=== PATIENT | female | born 1935 | race Caucasian/White ===

== ENCOUNTER → 2017-12-14 | Outpatient (CLI) | payer OTHER ==
[~2017-12-14] MED LIST: ASPI1TAB57 PO; ASPI81TA82 PO; CITRTAB7 PO; CLOB-40 TOPICAL; COQ-100C5 PO; CYAN1TAB24 PO; FEXO180 OR; FISHCAP4 PO; FLUT50SP EACH NARE; IPRASOL INH; LEVO250T7 PO; MELO15TA20 PO; MONT10TA4 PO; NITR50CA27 PO; OMEP20TA93 PO; OMPR20CCR PO; PROBCAP28 PO; REST0.05 EACH EYE; REST0.05 OU; VENTAER INH; VITA100052 PO; VITACAP7 PO; VITATAB11; ZAFI1TAB2 PO
== END ==
LOC: CPRE 11:28
PROVIDERS: ATTEND Orthopaedic Surgery Orthopaedic Trauma
DX: Z01.818 Encounter for other preprocedural examination (principal)

== ENCOUNTER 2017-12-18 05:17 | Inpatient (IN) | payer OTHER, MEDICARE ==
[~2017-12-18] VITALS: Ht 149.9 cm; Wt 58.9 kg
[~2017-12-18 05:17] MED LIST changes: -ASPI81TA82 PO; -FEXO180 OR; -NITR50CA27 PO; -OMPR20CCR PO; -PROBCAP28 PO; -REST0.05 OU; -VITATAB11; -ZAFI1TAB2 PO
[2017-12-18] MEDS ORDERED: DEXAMETHASONE SOD PHOS 20 MG/5 ML VIAL IV PUSH ONE (05:45)
[2017-12-18] MEDS ORDERED: CHLORHEXIDINE GLUCONATE 2 % 1 PACK (2 CLOTHS) TOPICAL PRN (05:45)
[2017-12-18] MEDS ORDERED: CHLORHEXIDINE GLUCONATE 4% SOLN 120 ML BTL TOPICAL SCH (05:45)
[2017-12-18] MEDS ORDERED: LACTATED RINGER'S 1000 ML IV PRN (05:45)
[2017-12-18] MEDS ORDERED: ONDANSETRON HCL 4 MG/2 ML VIAL IV PUSH ONE (05:45)
[2017-12-18] MEDS ORDERED: METOPROLOL TARTRATE 25 MG TAB PO PRN (05:45)
[2017-12-18] MEDS ORDERED: SODIUM CHLORID 0.9% 500 ML IV PRN (05:45)
[2017-12-18] MEDS ORDERED: POVIDONE IODINE 5% (ANTISEPSIS KIT) 4 APPLICATIONS EACH NARE PRN (05:45)
[2017-12-18] MEDS ORDERED: FAMOTIDINE 20 MG/2 ML VIAL IV PUSH ONE (05:45)
[2017-12-18] MEDS ORDERED: ACETAMINOPHEN 1000 MG/100 ML 100 ML IV ONE (05:45)
[2017-12-18 05:48] LABS: BACTERIA, URINE RARE /hpf; BILIRUBIN, URINE NEG (NEG); BLOOD, URINE NEG (NEG); GLUCOSE,URINE NEG (NEG); KETONE, URINE NEG (NEG); MUCUS URINE FEW /lpf (OCC); NITRITE,URINE NEG (NEG); PH, URINE 5.5 (5.0-8.5); SQUAMOUS EPITHELIAL CELL URINE 3 /hpf (0-5); URINE COLOR LIGHT-YELLOW (YELLW/STRAW); URINE LEUKOCYTE ESTERASE TRACE (NEG)
[2017-12-18] MEDS ORDERED: ONDANSETRON ODT 4 MG TAB ONE (06:29)
--- NOTE | 2017-12-18 06:37 | HHI.FF ---
Face to Face Verification Diagnosis: (1) S/P total hip arthroplasty Physical Therapy Gait training Hip: Total hip, Protocol: Right, Progress to weight bearing Right LE Weight Bearing: WB as tolerated Nursing Dressing Changes: Daily dressing change (beginning on POD 7 with primapore. maintain surgical dressing x 6 days unless saturated with blood) I have seen patient Teena Cassidy on 12/18/17. My clinical findings support the need for the requested home health care services because: Ltd mobility - disease progression I certify that my clinical findings support that this patient is homebound because: Post-op weakness Keagan Ratliff/Auto Detailer PA Dec 18, 2017 06:37
[2017-12-18] MEDS ORDERED: VANCOMYCIN 1 GM/200 ML PREMIX ON-CALL IV SCH (06:45)
[2017-12-18] MEDS ORDERED: GENTAMICIN SULFATE 80 MG/2 ML VIAL ONE (06:57)
[2017-12-18] MEDS ORDERED: RESP: ALBUTEROL CONC 2.5 MG/0.5 ML NEB ONE (07:03)
[2017-12-18] MEDS ORDERED: TRANEXAMIC ACID IV SCH (07:30)
[2017-12-18] MEDS ORDERED: BUPIVACAINE-EPI PF 0.25% INJ 20 ML, BUPIVACAINE LIPOSO PF 1.3% INJ 20 ML in SODIUM CHLO... P-ARTICULR SCH (07:30)
[2017-12-18] MEDS ORDERED: SODIUM CHLORIDE 0.9% IV SCH (07:30)
[2017-12-18] MEDS ORDERED: ceFAZolin INJ 1,000 MG VIAL ONE (07:46)
[2017-12-18] MEDS ORDERED: diphenhydrAMINE HCL 50 MG/ML VIAL ONE (07:49)
[2017-12-18] MEDS ORDERED: VANCOMYCIN HCL 1000 MG VIAL ONE (08:33)
[2017-12-18] MEDS: LACTATED RINGER'S 1000 ML INJ 1,000 ML IV SCH ×2 (09:10→21:40)
[2017-12-18] MEDS ORDERED: Post-op Orders (for Pharmacy) XX ONE (09:15)
[2017-12-18] MEDS ORDERED: ACETAMINOPHEN/HYDROcodone 325 MG/10 MG TAB PO PRN (09:15)
[2017-12-18] MEDS ORDERED: ALBUTEROL SULFATE 90 MCG/ACT HFA 8 GM INHALER INH PRN (09:15)
[2017-12-18] MEDS ORDERED: NALOXONE HCL 0.4 MG/ML AMP IV PUSH PRN (09:15)
[2017-12-18] MEDS ORDERED: ACETAMINOPHEN/HYDROcodone 325 MG/7.5 MG TAB PO PRN (09:15)
--- NOTE | 2017-12-18 09:21 | PD.OP ---
cc: Caleb Alvarez MD Operative Report Date of Surgery: Dec 18, 2017 Preoperative Diagnosis: Severe osteoarthritis right hip Postoperative Diagnosis: Procedure: Right total hip arthroplasty by anterior approach Anesthesia: General Surgeon: Caleb Alvarez Phlebotomy Services Representative(s): Keagan Ratliff PA-C The surgical procedure was assisted by my physician information assistant. My P.A. presence was necessary throughout this case for the manipulation and positioning of the surgical extremity. My P.A. was assisting me throughout the duration of this procedure. The skill set of a physician information assistant was medically necessary to complete this procedure. During the surgical case the surgical appliances salesperson was working at the back table and the physician information assistant was directly assisting me. Operation and Findings: PLAN OF ACTIVITY Weight bear as tolerated. IMPLANTS USED DePuy Corail size 12 collared stem with a size [50] [place] Gription cup, [50/ 32] Altrx poly liner, and a [32 +5] metal head. DETAILS OF PROCEDURE: This patient has a long history of hip pain. Patient was found to have severe osteoarthritis. The patient had radiographic evidence of joint space narrowing with [id number] arthritis and osteophytes around the acetabulum as well as the femoral head. There was also some cystic changes. The patient failed conservative treatment with pain medications, anti-inflammatories, physical therapy, assistive devices including a cane, as well as therapeutic injection of the hip. Patient's hip arthritis was limiting his ability to ambulate and perform activities of daily living. The patient wished to proceed with surgery and informed consent was obtained. Operative site was marked. I discussed both posterior approach and anterior approach with the patient and decision was made for anterior approach. Patient was brought to OR and placed on OR table. IV sedation and general anesthesia was administered by anesthesiologist. Patient positioned on a Rachelle table and was given IV antibiotics. Time-out procedure was performed. The hip and thigh were prepped with alcohol followed by Hibiclens. The thigh was draped in the usual sterile fashion. Clean Air Suite was used for this procedure. The procedure began with a 5-inch incision over the anterolateral thigh. Subcutaneous tissue was dissected with Bovie. The fascia over the tensa fasciae latae was incised. Care was taken to avoid injury to the lateral femoral cutaneous nerve. The tensor muscle was retracted laterally. Sartorius was retracted medially. Retractors were now placed. The reflected head of the rectus is now elevated. A capsulotomy was performed over the anterior head capsule. Sutures were placed to help retract the capsule. At this point the femoral head and neck were identified. With soft tissue protected, oscillating saw was used to make a cut through the femoral neck, the femoral head was now removed. At this point attention was turned to preparation of the acetabulum. The labrum was excised. The acetabulum was sequentially reamed up to size [50]. A [place] cup was now placed. Fluoroscopy was used to aid in identification of appropriate version. Cup was fully impacted and found to have excellent fit. Hole eliminator was now placed. The liner was now impacted into the cup. At this point the hip was externally rotated. A hook was placed around the proximal femur. The capsule was released off the lateral and medial femur. The hip was now extended and adducted. Retractors were placed around the proximal femur to allow for exposure. A box osteotome was used to remove the lateral cortex of the femoral neck. A broach was used to help lateralize the prosthesis. Canal finder was used to create a path down the canal. Next, the canal was sequentially broached up to size [12]. This was found to be an excellent fit. Calcar planer was placed. A standard head was placed, and the hip was reduced. The hip was found to have excellent stability with good range of motion. The leg lengths were measured under fluoroscopy and found to be equal compared to preoperatively. Trial broach was removed. The Corail stem was opened. Stem was fully impacted into the proximal femur in appropriate version. The femoral head was placed. The hip was again reduced. Fluoroscopy confirmed excellent alignment of prosthesis. The wound was thoroughly irrigated and capsule was closed with #1 Vicryl. The fascia over the tensor fasciae muscle was closed with #1 Vicryl, subcutaneous tissue was closed with 3-0 Vicryl and the skin was closed with haris and Dermabond skin closure. The capsule layers, muscle, and subcutaneous tissue were injected with a mixture of saline and bupivicaine. Dressings were applied. The patient was transferred to Recovery Room in stable condition. Caleb Alvarez MD Dec 18, 2017 09:21
[2017-12-18] MEDS ORDERED: HYDROmorphone HCL PF 2 MG/ML VIAL ONE (09:40)
[2017-12-18] MEDS ORDERED: ONDANSETRON ODT 4 MG TAB PO PRN (10:00)
--- NOTE | 2017-12-18 10:36 | RADRPT ---
EXAM DATE: 12/18/2017 10:32 AM EDT AGE/SEX: 82 years / Female INDICATIONS: Post op right hip CLINICAL DATA: This is the patient's initial encounter. Patient reports that signs and symptoms have been present for 1 day and indicates a pain score of 10/10. MEDICAL/SURGICAL HISTORY: Non-responsive. . right hip COMPARISON: No prior exams available for comparison. FINDINGS: The patient is post right hip arthroplasty. Orthopedic hardware is in excellent position. The alignme nt is good. There are moderate degenerative changes within the left hip. The osseous structures of the pelvis are otherwise intact. CONCLUSION: Patient is post right hip arthroplasty. The orthopedic hardware is in excellent position. Electronically signed by: Golden Cobb MD 12/18/2017 10:35 AM EDT
[2017-12-18] MEDS ORDERED: KETOROLAC TROMETHAMINE 30 MG/ML (IVP) VIAL IV PUSH SCH (11:00)
[2017-12-18] MEDS: ASPIRIN 81 MG CHEW TAB CHEW SCH ×2 (11:00→21:17)
[2017-12-18] MEDS: ACETAMINOPHEN 1000 MG/100 ML 100 ML IV SCH (11:00)
[2017-12-18] MEDS ORDERED: ERYTHROMYCIN 0.5% OPTH OINT 1 GM TUBO ONE (11:05)
[2017-12-18] MEDS ORDERED: DO NOT ADM ANY ANTICOAGULANT DRUGS PRN (11:40)
[2017-12-18] MEDS ORDERED: NEOSTIGMINE 5 MG/5 ML SYRINGE IV PUSH ONE (12:00)
[2017-12-18] MEDS ORDERED: PROPOFOL 200 MG/20 ML AMP IV ONE (12:00)
[2017-12-18] MEDS ORDERED: TRANEXAMIC ACID INJ 1,000 MG in SODIUM CHLORIDE 0.9% INJ 100 ML IV ONE (12:00)
[2017-12-18] MEDS ORDERED: GLYCOPYRROLATE 1 MG/5 ML SYRINGE IV PUSH ONE (12:00)
[2017-12-18] MEDS ORDERED: PHENYLEPH/NS 1000 MCG/10 ML SYR IV ONE (12:00)
[2017-12-18] MEDS ORDERED: ePHEDrine/NS 25 MG/5 ML SYRINGE IV ONE (12:00)
[2017-12-18] MEDS ORDERED: ROCURONIUM INJ 50 MG/5 ML SYRINGE IV PUSH ONE (12:00)
[2017-12-18] MEDS ORDERED: STERILE WATER FOR INJECTION 20 ML VIAL IV ONE (12:00)
[2017-12-18] MEDS ORDERED: LIDOCAINE HCL 1% PF 5 ML SYRINGE OTHER ONE (12:00)
[2017-12-18 12:30] VITALS: BP 131/56; PULSE 71; RESP 17; TEMP 98.6; O2SAT 95
[2017-12-18] MEDS ORDERED: ERYTHROMYCIN 0.5% OPTH OINT 1 GM TUBO RIGHT EYE ONE (12:30)
[2017-12-18] MEDS ORDERED: DIATRIZOATE MEGLUM/DIATRIZOATE SOD 9 ML CUP PO ONE (12:30)
[2017-12-18 13:12] VITALS: O2SAT 93
--- NOTE | 2017-12-18 13:14 | RADRPT ---
EXAM DATE: 12/18/2017 12:58 PM EDT AGE/SEX: 82 years / Female INDICATIONS: Right total hip replacement. CLINICAL DATA: This is the patient's initial encounter. Patient reports that signs and symptoms have been present for 1 day and indicates a pain score of Nonresponsive. MEDICAL/SURGICAL HISTORY: Non-responsive. Non-responsive. COMPARISON: No prior exams available for comparison. FINDINGS: Post surgical changes following right hip replacement are noted. Acetabular and femoral components ar e well seated and in satisfactory alignment. Osseous structures are otherwise intact. CONCLUSION: Satisfactory postoperative appearance of the right hip following replacement. Electronically signed by: Raffaele Morse MD 12/18/2017 1:13 PM EDT
[2017-12-18] MEDS: ceFAZolin 2 GM PREMIX 50 ML IV SCH ×2 (15:36→21:18)
[2017-12-18 16:23] VITALS: BP 121/58; PULSE 64; RESP 18; TEMP 97.4; O2SAT 94
[2017-12-18] MEDS: RESP: ALBUTEROL 2.5 MG/IPRATROPIUM 0.5 MG NEB (SCH) INH (19:42)
[2017-12-18 19:46] VITALS: O2SAT 97
[2017-12-18 20:00] VITALS: BP 110/55; PULSE 62; RESP 18; TEMP 97.8; O2SAT 96
[2017-12-18] MEDS ORDERED: PATIENT OWN MEDICATION (Cyclosporine Opth (Restasis Opth) 1 DROP) EACH EYE SCH (21:00)
[2017-12-18] MEDS ORDERED: MONTELUKAST SODIUM 10 MG TAB PO SCH (21:00)
[2017-12-18] MEDS: CELECOXIB 200 MG CAP PO SCH (21:17)
[2017-12-18] MEDS: VANCOMYCIN INJ 1,000 MG in SODIUM CHLOR 0.9% 250 ML INJ 250 ML IV SCH (21:18)
[2017-12-19] VITALS: BP 91/52; PULSE 60; RESP 20; TEMP 98.4; O2SAT 95
[2017-12-19] MEDS: ACETAMINOPHEN 1000 MG/100 ML 100 ML IV SCH ×2 (00:37→11:00)
[2017-12-19 04:00] VITALS: BP 94/53; PULSE 67; RESP 16; TEMP 97.6; O2SAT 96
[2017-12-19 05:57] LABS: HEMATOCRIT 30.4 % (35.0-46.0); HEMOGLOBIN 10.1 GM/DL (11.6-15.3)
--- NOTE | 2017-12-19 06:43 | PD.ORT.PN ---
Subjective Subjective Remarks POD 1 s/p Right IRISH anterior approach doing well. out of bed multiple times to bathroom. states pain controlled and no complaints Objective Vitals Vital Signs Date Time Temp Pulse Resp B/P (MAP) Pulse Ox O2 Delivery O2 Flow Rate FiO2 12/19/17 04:00 97.6 67 16 94/53 (67) 96 12/19/17 00:00 98.4 60 20 91/52 (65) 95 12/18/17 20:00 97.8 62 18 110/55 (73) 96 12/18/17 19:46 97 Nasal Cannula 2.00 12/18/17 16:23 97.4 64 18 121/58 (79) 94 12/18/17 13:12 93 Nasal Cannula 2.00 12/18/17 12:30 98.6 71 17 131/56 (81) 95 12/18/17 11:47 98.0 65 16 128/66 (86) 99 Nasal Cannula 3 12/18/17 11:30 80 16 153/60 (91) 99 Nasal Cannula 3 12/18/17 11:00 67 16 153/60 (91) 99 Nasal Cannula 3 12/18/17 10:30 63 16 123/60 (81) 97 Nasal Cannula 3 12/18/17 10:15 66 16 118/58 (78) 97 Nasal Cannula 3 12/18/17 10:00 65 17 119/58 (78) 97 Nasal Cannula 3 12/18/17 09:45 78 15 149/66 (93) 96 Nasal Cannula 3 12/18/17 09:37 97.7 78 15 135/63 (87) 96 Nasal Cannula 3 I/O 12/18/17 12/18/17 12/18/17 12/19/17 12/19/17 12/19/17 07:00 15:00 23:00 07:00 15:00 23:00 Intake Total 1175 ml 670 ml 480 ml Output Total 800 ml Balance 375 ml 670 ml 480 ml Intake Oral 670 ml 480 ml IV Total 175 ml Other 1000 ml Output Urine Total 300 ml Estimated Blood Loss 500 ml # Voids 7 8 # Bowel Movements 0 0 Result Diagram: 12/19/17 0505 Imaging Last 24 hours Impressions Hip and Pelvis X-Ray 12/18/17 0910 Signed Impressions: CONCLUSION: Patient is post right hip arthroplasty. The orthopedic hardware is in excellent position. Objective Remarks RLE: dressing clean and dry. intact. nvi Assessment & Plan Assessment and Plan 1) Right Anterior IRISH - POD 1 -WBAT -maintain dressing changes x 6 days -begin dailyi dressing changes in primapore dressings on POD 7 -DC home with HHC today -f/u with Helga or PA in 2 weeks Keagan Ratliff/First Sarahi KHAN Dec 19, 2017 06:43
--- NOTE | 2017-12-19 07:05 | HHI.DS ---
Discharge Summary Admission Date Dec 18, 2017 at 05:17 Discharge Date: Dec 19, 2017 Admitting Diagnosis Right hip osteoarthritis Diagnosis: (1) S/P total hip arthroplasty Diagnosis: Principal ICD Codes: Z96.649 - Presence of unspecified artificial hip joint Procedures Right anterior total hip arthroplasty CBC/BMP: 12/19/17 0505 Significant Findings Laboratory Tests Test 12/18/17 05:35 12/19/17 05:05 Urine Leukocyte Esterase TRACE (NEG) Urine Bacteria RARE /hpf (NONE) Urine Mucus FEW /lpf (OCC) Hemoglobin 10.1 GM/DL (11.6-15.3) Hematocrit 30.4 % (35.0-46.0) PE at Discharge RLE: dressing clean and dry. intact. nvi Hospital Course Patient has a long-standing course of right hip osteoarthritis. She failed conservative treatments which included anti-inflammatories, activity modification, and steroid injections. The decision was made to move forward with an elective right total hip arthroplasty. She tolerated the procedure well. She was admitted to [facility]. She is out of bed on postop day 0 and ambulating with a walker. She states that she went to the bathroom multiple times. She states her pain is well controlled. By postop day 1, she is hemodynamically stable, pain controlled, ambulating with a walker and fit for discharge home with home health care. She will remain fully weightbearing on the right leg. She will progress with therapy. She will maintain the dressing on her right hip for 6 days and begin daily dressing changes with a Primapore on postop day 7. She will follow-up on an outpatient basis with Dr. Partida or his PA in 2 weeks Pt Condition on Discharge: Good Discharge Disposition: Disch w/ Home Health Serv Discharge Instructions Diet Instructions: As Tolerated, No Restrictions Activities You Can Perform: Weight Bearing as Nena Follow up Referrals: Orthopedics - 2 Weeks @ [facility] with Caleb Partida MD Changed Medications: Aspirin (Aspirin 81) 81 Mg Tabdr 81 MG PO BID for Blood Clot Prevention for 30 Days, #60 TAB 0 Refills (Changed from: DAILY) Continued Medications: Albuterol 18 GM Inh (Ventolin Hfa 18 GM Inh) 90 Mcg/Act Aer 2 PUFF INH Q4H PRN for SHORTNESS OF BREATH, #1 INHALER 0 Refills B-Complex Vitamins (B Complex) 1 Cap 1 CAP PO DAILY for Nutritional Supplement, #30 CAP 0 Refills Calcium Citrate-Vitamin D (Citracal + D3 Maximum) 315-250 Mg-Unit Tab 2 TAB PO BID for Calcium Supplement, #100 TAB 0 Refills Cholecalciferol (Vitamin D High Potency) 1,000 Unit Cap 1000 UNITS PO DAILY, #1 BOTTLE Clobetasol Propionate (Temovate) 0.05 % Cream..g. 1 APPLIC TOPICAL WEEKLY Coenzyme Q10 (Ubidecarenone) (Coq-10 Tr) 100 Mg Cap 1 CAP PO DAILY Cyanocobalamin (B12) 1,000 Mcg Tab 1 CAP PO DAILY Cyclosporine Opth (Restasis Opth) 0.05% Emul 1 DROP EACH EYE BID for Dry Eye, #1 BOX 0 Refills Fish Oil-Cholecalciferol (Fish Oil + D3) 1,200-1,000 Mg-Unit Cap 1 CAP PO DAILY for Nutritional Supplement, #30 CAP 0 Refills Fluticasone Nasal [place] (Fluticasone Nasal [place]) 50 Mcg/Act Naspr 50 MCG EACH NARE DAILY for Allergy Management, #1 BOTTLE 0 Refills 50 mcg/spray Ipratropium-Albuterol Neb (Duoneb) 0.5-2.5 Mg/3 Ml Neb 1 NEBULE INH BID for Breathing Treatment, #30 NEBULE 0 Refills Levofloxacin (Levofloxacin) 250 Mg Tablet 250 MG PO DAILY for Infection, TAB 0 Refills Meloxicam (Meloxicam) 15 Mg Tab 15 MG PO DAILY for Arthritis Pain, #30 TAB 0 Refills Montelukast (Montelukast) 10 Mg Tab 10 MG PO HS, #30 TAB 0 Refills Omeprazole (Omeprazole) 20 Mg Tab 20 MG PO DAILY, #30 TAB 0 Refills Keagan Ratliff/Director Quality Systems BILL Dec 19, 2017 07:05
[2017-12-19] MEDS ORDERED: ASPI1TAB57 PO (07:06)
[2017-12-19 08:21] VITALS: BP 105/55; PULSE 64; RESP 17; TEMP 98.3; O2SAT 96
[2017-12-19] MEDS: VANCOMYCIN INJ 1,000 MG in SODIUM CHLOR 0.9% 250 ML INJ 250 ML IV SCH (08:41)
[2017-12-19] MEDS: ACETAMINOPHEN/HYDROcodone 325 MG/5 MG TAB PO PRN ×2 (08:42→12:08)
[2017-12-19] MEDS: CELECOXIB 200 MG CAP PO SCH (08:43)
[2017-12-19] MEDS: ASPIRIN 81 MG CHEW TAB CHEW SCH (08:43)
[2017-12-19] MEDS: RESP: ALBUTEROL 2.5 MG/IPRATROPIUM 0.5 MG NEB (SCH) INH (08:52)
[2017-12-19 08:55] VITALS: O2SAT 96
[2017-12-19] MEDS ORDERED: PANTOPRAZOLE SOD 20 MG DELAYED RELEASE TAB PO SCH (09:00)
[2017-12-19] MEDS ORDERED: NON-FORMULARY DRUG (Coenzyme Q10 (Ubidecarenone) (Coq-10 Tr) 1 CAP) PO SCH (09:00)
[2017-12-19] MEDS ORDERED: CYANOCOBALAMIN 1,000 MCG TAB PO SCH (09:00)
[2017-12-19] MEDS ORDERED: FLUTICASONE PROPIONATE 50 MCG/ACT 16 GM NASAL SPRAY EACH NARE SCH (09:00)
[2017-12-19] MEDS ORDERED: CHOLECALCIFEROL (VIT D3) 1000 UNIT TAB PO SCH (09:00)
[2017-12-19] MEDS ORDERED: NON-FORMULARY DRUG (Fish Oil-Cholecalciferol (Fish Oil + D3) 1 CAP) PO SCH (09:00)
[2017-12-19 11:51] VITALS: BP 105/58; PULSE 63; RESP 18; TEMP 98.4; O2SAT 94
[2017-12-19 13:08] VITALS: RESP 20
[2017-12-19] MEDS ORDERED: DOCUSATE SODIUM 100 MG CAP PO SCH (21:00)
== END 2017-12-19 14:20 | disposition home health service (06) | DRG 470 ==
LOC: HSDI 05:17 → N06A 12:01
PROVIDERS: ADMIT Orthopaedic Surgery Orthopaedic Trauma; ATTEND Orthopaedic Surgery Orthopaedic Trauma
PROC: 0SR902Z Replacement of Right Hip Joint with Metal on Polyethylene Synthetic Substitute, Open Approach (ICD-10-PCS; principal; 2017-12-18 07:20)
DX: M16.11 Unilateral primary osteoarthritis, right hip (principal); J45.909 Unspecified asthma, uncomplicated; K21.9 Gastro-esophageal reflux disease without esophagitis; Z88.1 Allergy status to other antibiotic agents; Z90.710 Acquired absence of both cervix and uterus; Z79.82 Long term (current) use of aspirin; Z88.5 Allergy status to narcotic agent; Z88.8 Allergy status to other drugs, medicaments and biological substances
CPT/HCPCS: 73501; 73502; 76000; 81001; 85014; 85018; 86850; 86900; 86901; 94640; 94664; C1776; C9290; J0131; J0690; J1100; J1170; J1200; J1580; J1885; J2370; J2710; J3010; J3370; J7050; J7120; J7611